=== PATIENT | male | born 1980 | race Caucasian/White ===

== ENCOUNTER 2016-04-20 18:52 | Inpatient (IN) | payer OTHER, BC ==
[2016-04-20] MEDS ORDERED: DIPHTH/TETANUS/ACEL PERTUSSIS (BOOSTER) 0.5 ML VIAL/PFS IM ONE (18:56)
[2016-04-20] MEDS ORDERED: IOHEXOL 350 MG/ML 10 ML VIAL (for RAD DIAG) IV ONE (19:18)
[2016-04-20 19:25] LABS: BASOPHIL # 0.1 TH/MM3 (0-0.2); BASOPHIL % 0.6 % (0.0-2.0); EOSINOPHIL # 0.1 TH/MM3 (0-0.4); EOSINOPHIL % 0.8 % (0.0-4.0); HEMATOCRIT 46.1 % (39.0-51.0); HEMO FLAGS DIFF FINAL; LYMPH % 27.4 % (9.0-44.0); LYMPHOCYTE # 3.8 TH/MM3 (1.0-4.8); MEAN CELL VOLUME 88.1 FL (80.0-100.0); MEAN CORPUSCULAR HEMOGLOBIN 29.8 PG (27.0-34.0); MEAN CORPUSCULAR HGB CONC 33.8 % (32.0-36.0); MONO % 7.2 % (0.0-8.0); PLATELET COUNT 231 TH/MM3 (150-450); RED BLOOD COUNT 5.24 MIL/MM3 (4.50-5.90); RED CELL DISTRIBUTION WIDTH 13.4 % (11.6-17.2)
[2016-04-20 19:39] LABS: APTT (PATIENT) 25.9 SEC (24.3-30.1); I-STAT POTASSIUM 6.8 MMOL/L (3.5-4.9); PROTHROMBIN TIME - PATIENT 10.7 SEC (9.8-11.6)
[2016-04-20] MEDS ORDERED: MORPHINE SULFATE 4 MG/ML INJ IV PUSH ONE ×2 (19:45→22:15)
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
[2016-04-20 20:16] LABS: BICARBONATE 28.3 MEQ/L (21.0-32.0); POTASSIUM 3.9 MEQ/L (3.5-5.1)
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
[2016-04-20 20:46] VITALS: O2SAT 99
[2016-04-20 20:51] VITALS: BP 177/78; PULSE 89; RESP 18; TEMP 98.1; O2SAT 99
[2016-04-20 21:44] VITALS: BP 156/78; PULSE 89; RESP 20; O2SAT 98
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
[2016-04-20] MEDS ORDERED: ONDANSETRON HCL 4 MG/2 ML VIAL IV PUSH ONE (22:15)
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
[2016-04-20] MEDS ORDERED: MISCELLANEOUS NURSING INFORMATION XX SCH (23:15)
[2016-04-20] MEDS ORDERED: CHLORHEXIDINE GLUCONATE 2 % 1 PACK (2 CLOTHS) TOP PRN (23:15)
[2016-04-20] MEDS ORDERED: ONDANSETRON HCL 4 MG/2 ML VIAL IV PRN (23:15)
[2016-04-20] MEDS ORDERED: SODIUM CHLORIDE 0.9% FLUSH 5 ML FLUSH IVF PRN (23:15)
[2016-04-20] MEDS ORDERED: MAGNESIUM HYDROXIDE SUSP 30 ML CUP PO PRN (23:15)
[2016-04-20] MEDS: LACTATED RINGER'S 1000 ML INJ 1,000 ML IV SCH (23:17)
[2016-04-20 23:33] VITALS: BP 156/77; PULSE 89; RESP 18; O2SAT 99
[2016-04-21] MEDS ORDERED: ENOXAPARIN SODIUM 30 MG/0.3 ML SYRINGE SQ SCH (01:00)
[2016-04-21 01:25] VITALS: O2SAT 99
[2016-04-21] MEDS: IBUPROFEN 800 MG TAB PO SCH ×3 (01:33→12:33)
[2016-04-21 01:48] VITALS: BP 127/78; PULSE 78; RESP 18; TEMP 98.1; O2SAT 98
[2016-04-21] MEDS ORDERED: CHLORHEXIDINE GLUCONATE 2 % 1 PACK (2 CLOTHS) TOP SCH (04:00)
[2016-04-21 04:04] VITALS: BP 141/71; PULSE 86; RESP 19; TEMP 97.3; O2SAT 94
[2016-04-21 04:41] LABS: BASOPHIL % 0.2 % (0.0-2.0); EOSINOPHIL % 0.1 % (0.0-4.0); HEMATOCRIT 41.8 % (39.0-51.0); HEMO FLAGS DIFF FINAL; LYMPH % 12.5 % (9.0-44.0); LYMPHOCYTE # 1.6 TH/MM3 (1.0-4.8); MEAN CELL VOLUME 88.6 FL (80.0-100.0); MEAN CORPUSCULAR HEMOGLOBIN 29.5 PG (27.0-34.0); MEAN CORPUSCULAR HGB CONC 33.3 % (32.0-36.0); MONO % 6.5 % (0.0-8.0); NEUT % 80.7 % (16.0-70.0); PLATELET COUNT 189 TH/MM3 (150-450); RED BLOOD COUNT 4.71 MIL/MM3 (4.50-5.90); RED CELL DISTRIBUTION WIDTH 13.5 % (11.6-17.2); WHITE BLOOD COUNT 12.4 TH/MM3 (4.0-11.0)
[2016-04-21 04:56] LABS: BICARBONATE 22.4 MEQ/L (21.0-32.0); POTASSIUM 4.4 MEQ/L (3.5-5.1)
[2016-04-21] MEDS ORDERED: HYDR-3288 PO (06:59)
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
[2016-04-21 07:42] VITALS: BP 140/72; PULSE 72; RESP 17; TEMP 97.8; O2SAT 95
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
[2016-04-21] MEDS ORDERED: DOCUSATE SODIUM 100 MG CAP PO SCH (09:00)
[2016-04-21] MEDS ORDERED: FAMOTIDINE 20 MG TAB PO SCH (09:00)
[2016-04-21] MEDS: LACTATED RINGER'S 1000 ML INJ 1,000 ML IV SCH (09:02)
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
[2016-04-22] MEDS ORDERED: PNEUMOCOCCAL POLYVALENT INJ 25 MCG/0.5 ML SYR IM ONE (10:00)
== END 2016-04-21 13:04 | disposition home or self-care (01) | DRG 565 ==
LOC: NEPI 18:52 → NEDA 21:13 → EDBD 23:06 → OBSVTOIN 23:06 → N06A 04-21 02:08
PROVIDERS: ADMIT Surgery; ATTEND Surgery
DX: S42.111A Displaced fracture of body of scapula, right shoulder, initial encounter for closed fracture (principal); S22.039A Unspecified fracture of third thoracic vertebra, initial encounter for closed fracture; S09.90XA Unspecified injury of head, initial encounter; S22.059A Unspecified fracture of T5-T6 vertebra, initial encounter for closed fracture; S22.069A Unspecified fracture of T7-T8 vertebra, initial encounter for closed fracture; S00.31XA Abrasion of nose, initial encounter; V29.9XXA Motorcycle rider (driver) (passenger) injured in unspecified traffic accident, initial encounter; R40.2411 Glasgow coma scale score 13-15, in the field [EMT or ambulance]; F10.129 Alcohol abuse with intoxication, unspecified; Z72.0 Tobacco use
CPT/HCPCS: 70450; 70486; 71010; 71260; 72125; 72128; 72131; 72170; 73020; 73030; 74177; 80048; 82435; 82565; 82947; 84132; 84295; 84520; 85025; 85610; 85730; 86850; 86900; 86901; 90471; 90715; 94150; 96374; 96375; 99291; G0390; J1650; J2270; J2405; J3010; J7120; Q9967